=== PATIENT | male | born 1965 | race Caucasian/White ===

== ENCOUNTER 2018-03-30 00:34 | Day surgery (SDC) | payer OTHER ==
[~2018-03-30 00:34] MED LIST: CEFU50SU; CRUTCH3 USE; DOXYCYCLINE HY100 MG PO; DULO60; Depo-Testos200 MG/ML IM; HYDACE5 PO; IBUP600 PO; IBUP800 PO; NAPR500 PO; NYST100000; Norco 10-325 T1 EACH PO; OXYACE5T PO; RXERYTOPTH OP; Tindamax500 MG
[2018-03-30] MEDS ORDERED: ATOVAQUONE750 MG/5 M PO (11:55)
[2018-03-30] MEDS ORDERED: Sulfamethoxazo1 EAC4 PO (11:56)
[2018-03-30] MEDS ORDERED: [UNRECOGNIZED DRUG - CODE] PO (11:56)
[2018-03-30] MEDS ORDERED: AZIT250 PO (11:56)
[2018-03-30] MEDS ORDERED: ATOVAQUONE-PRO1 EAC1 PO (11:56)
[2018-03-30] MEDS ORDERED: DULO60 PO (11:57)
[2018-03-30] MEDS ORDERED: MELO7.5 PO (11:57)
[2018-03-30] MEDS ORDERED: Hair, Skin & N1 EACH PO (11:58)
== END 2018-03-30 11:20 | disposition home or self-care (01) ==
LOC: ATC 00:34
DX: A69.20 Lyme disease, unspecified (principal); B60.0 Babesiosis; G62.9 Polyneuropathy, unspecified; R51 Headache; M25.50 Pain in unspecified joint
CPT/HCPCS: 36569; C1751

== ENCOUNTER 2018-04-07 01:00 | Day surgery (SDC) | payer OTHER ==
[~2018-04-07 01:00] MED LIST changes: +ATOVAQUONE-PRO1 EAC1 PO; +ATOVAQUONE750 MG/5 M PO; +AZIT250 PO; +DULO60 PO; +Hair, Skin & N1 EACH PO; +MELO7.5 PO; +Sulfamethoxazo1 EAC4 PO; +[UNRECOGNIZED DRUG - CODE] PO
== END 2018-04-07 10:12 | disposition home or self-care (01) ==
LOC: ATC 01:00
DX: A69.20 Lyme disease, unspecified (principal); B60.0 Babesiosis; G62.9 Polyneuropathy, unspecified; R51 Headache; M25.50 Pain in unspecified joint
CPT/HCPCS: 99211

== ENCOUNTER 2018-04-13 13:54 | Day surgery (SDC) | payer OTHER | END 2018-04-13 14:27 | disposition home or self-care (01) | LOC: ATC 13:54 | DX: A69.20 Lyme disease, unspecified (principal); B60.0 Babesiosis; G62.9 Polyneuropathy, unspecified; R51 Headache; M25.50 Pain in unspecified joint | CPT/HCPCS: 99211 ==

== ENCOUNTER 2018-04-20 00:55 | Day surgery (SDC) | payer OTHER | END 2018-04-20 10:25 | disposition home or self-care (01) | LOC: ATC 00:55 | DX: A69.20 Lyme disease, unspecified (principal); B60.0 Babesiosis; G62.9 Polyneuropathy, unspecified; R51 Headache; M25.50 Pain in unspecified joint | CPT/HCPCS: 99211 ==

== ENCOUNTER 2018-05-04 00:22 | Day surgery (SDC) | payer OTHER | END 2018-05-04 11:15 | disposition home or self-care (01) | LOC: ATC 00:22 | DX: A69.20 Lyme disease, unspecified (principal); B60.0 Babesiosis; G62.9 Polyneuropathy, unspecified; R51 Headache; M25.50 Pain in unspecified joint | CPT/HCPCS: 99211 ==

== ENCOUNTER 2018-05-10 00:22 | Day surgery (SDC) | payer OTHER | END 2018-05-10 10:30 | disposition home or self-care (01) | LOC: ATC 00:22 | DX: A69.20 Lyme disease, unspecified (principal); B60.0 Babesiosis; G62.9 Polyneuropathy, unspecified; R51 Headache; M25.50 Pain in unspecified joint ==

== ENCOUNTER 2018-05-13 09:12 | Day surgery (SDC) | payer OTHER | END 2018-05-13 11:24 | disposition home or self-care (01) | LOC: ATC 09:12 | DX: A69.20 Lyme disease, unspecified (principal); B60.0 Babesiosis; R51 Headache; M25.50 Pain in unspecified joint; G62.9 Polyneuropathy, unspecified; Z79.899 Other long term (current) drug therapy; F33.1 Major depressive disorder, recurrent, moderate | CPT/HCPCS: 99211 ==

== ENCOUNTER 2018-05-18 00:45 | Day surgery (SDC) | payer OTHER | END 2018-05-18 10:10 | disposition home or self-care (01) | LOC: ATC 00:45 | DX: A69.20 Lyme disease, unspecified (principal); B60.0 Babesiosis; G62.9 Polyneuropathy, unspecified; R51 Headache; M25.50 Pain in unspecified joint | CPT/HCPCS: 99211 ==

== ENCOUNTER 2018-05-23 00:33 | Day surgery (SDC) | payer OTHER | END 2018-05-23 09:26 | disposition home or self-care (01) | LOC: ATC 00:33 | DX: Z45.2 Encounter for adjustment and management of vascular access device (principal); A69.20 Lyme disease, unspecified; B60.0 Babesiosis; R51 Headache; M25.50 Pain in unspecified joint; G62.9 Polyneuropathy, unspecified | CPT/HCPCS: 99211 ==

== ENCOUNTER 2018-06-20 00:29 | Day surgery (SDC) | payer OTHER | END 2018-06-20 09:10 | disposition home or self-care (01) | LOC: ATC 00:29 | DX: A69.20 Lyme disease, unspecified (principal); B60.0 Babesiosis; G62.9 Polyneuropathy, unspecified; R51 Headache; M25.50 Pain in unspecified joint | CPT/HCPCS: 99211 ==

== ENCOUNTER 2018-06-27 00:27 | Day surgery (SDC) | payer OTHER | END 2018-06-27 09:13 | disposition home or self-care (01) | LOC: ATC 00:27 | DX: A69.20 Lyme disease, unspecified (principal); B60.0 Babesiosis; G62.9 Polyneuropathy, unspecified; R51 Headache; M25.50 Pain in unspecified joint | CPT/HCPCS: 99211 ==

== ENCOUNTER 2018-07-01 14:12 | Day surgery (SDC) | payer OTHER | END 2018-07-01 14:39 | disposition home or self-care (01) | LOC: ATC 14:12 | DX: Z45.2 Encounter for adjustment and management of vascular access device (principal); A69.20 Lyme disease, unspecified; B60.0 Babesiosis; G62.9 Polyneuropathy, unspecified | CPT/HCPCS: 99211 ==

== ENCOUNTER 2018-07-04 01:35 | Day surgery (SDC) | payer OTHER | END 2018-07-04 09:23 | disposition home or self-care (01) | LOC: ATC 01:35 | DX: Z45.2 Encounter for adjustment and management of vascular access device (principal); A69.20 Lyme disease, unspecified; B60.0 Babesiosis; G62.9 Polyneuropathy, unspecified | CPT/HCPCS: 99211 ==

== ENCOUNTER 2018-07-18 09:55 | Day surgery (SDC) | payer OTHER | END 2018-07-18 10:20 | disposition home or self-care (01) | LOC: ATC 09:55 | DX: A69.20 Lyme disease, unspecified (principal); B60.0 Babesiosis; R51 Headache; G62.9 Polyneuropathy, unspecified; M25.50 Pain in unspecified joint | CPT/HCPCS: 99211 ==

== ENCOUNTER 2018-07-25 00:13 | Day surgery (SDC) | payer OTHER | END 2018-07-25 09:08 | disposition home or self-care (01) | LOC: ATC 00:13 | DX: A69.20 Lyme disease, unspecified (principal); B60.0 Babesiosis; G62.9 Polyneuropathy, unspecified; M25.50 Pain in unspecified joint | CPT/HCPCS: 99211 ==

== ENCOUNTER 2018-08-01 00:45 | Day surgery (SDC) | payer OTHER | END 2018-08-01 09:38 | disposition home or self-care (01) | LOC: ATC 00:45 | DX: A69.20 Lyme disease, unspecified (principal); B60.0 Babesiosis; G62.9 Polyneuropathy, unspecified; R51 Headache; M25.50 Pain in unspecified joint | CPT/HCPCS: 99211 ==

== ENCOUNTER 2018-08-08 00:34 | Day surgery (SDC) | payer OTHER | END 2018-08-08 09:25 | disposition home or self-care (01) | LOC: ATC 00:34 | DX: Z45.2 Encounter for adjustment and management of vascular access device (principal); A69.20 Lyme disease, unspecified; B60.0 Babesiosis; G62.9 Polyneuropathy, unspecified; R51 Headache; M25.50 Pain in unspecified joint | CPT/HCPCS: 99212 ==

== ENCOUNTER 2018-10-31 14:42 | Observation (INO) | payer OTHER ==
[~2018-10-31] VITALS: Ht 195.6 cm; Wt 109.5 kg
[2018-10-31 15:32] LABS: BASOPHILS ABSOLUTE AUTO 0.02 K/mm3 (0.00-0.23); BASOPHILS PERCENT AUTO 0 % (0-2); EOSINOPHILS PERCENT AUTO 4 % (0-6); Hemoglobin 14.6 g/dL (13.5-17.5); IMMATURE GRAN ABSOLUTE AUTO 0.01 K/mm3 (0.00-0.10); IMMATURE GRAN PERCENT AUTO 0 % (0-1); LYMPHOCYTES ABSOLUTE AUTO 1.78 K/mm3 (0.84-5.20); LYMPHOCYTES PERCENT AUTO 32 % (21-46); MONOCYTES PERCENT AUTO 5 % (4-13); Mean Corpuscular HGB 30.1 pg (26.0-34.0); Mean Corpuscular Volume 89 fL (80-100); Mean Platelet Volume 10.1 fL (9.1-12.4); NEUTROPHILS PERCENT AUTO 59 % (41-73); Platelet Count 179 K/mm3 (150-400); RDW Standard Deviation 44.9 fL (35.1-46.3); Red Blood Cell Count 4.85 M/mm3 (4.30-5.90); White Blood Cell Count 5.61 K/mm3 (4.00-11.30)
[2018-10-31 15:47] LABS: Troponin I <0.015 ng/mL (0.000-0.040)
[2018-10-31 15:56] LABS: Alanine Aminotransfer (ALT/SGP 34 U/L (12-78); Albumin, Blood 3.9 g/dL (3.4-5.0); Albumin/Globulin Ratio 1.1 (0.8-1.8); Alk Phos 73 U/L (50-136); Anion Gap 7 mmol/L (6-16); Aspartate Aminotrans (AST/SGOT 37 U/L (12-37); Bilirubin, Total 0.3 mg/dL (0.1-1.0); Blood Urea Nitrogen 10 mg/dL (8-24); Bun/Creatinine Ratio 13.1 (12.0-20.0); CO2, Blood 28 mmol/L (21-32); Chloride, Blood 106 mmol/L (98-108); Creatinine, Blood 0.76 mg/dL (0.60-1.20); Globulin, Blood 3.6 g/dL (2.2-4.0); Glomerular Filtration Rate >60 (60-); Glucose, Blood 106 mg/dL (70-99); Potassium, Blood 4.2 mmol/L (3.5-5.5); Sodium, Blood 141 mmol/L (136-145); Total Protein, Blood 7.5 g/dL (6.4-8.2)
[2018-10-31 17:54] LABS: CHOL/HDL RATIO 4.6; Cholesterol 203 mg/dL (50-200); HDL Cholesterol 44 mg/dL (>39); LDL/HDL RATIO 1.9; Low Density Lipoprotein Chol 85 mg/dL (0-110); Triglycerides 371 mg/dL (30-160); Very Low Density Lipoprot Chol 74 mg/dL (6-32)
[2018-10-31 18:25] LABS: International Normalized Ratio 0.94; Prothrombin Time Results 9.7 Sec (9.7-11.5)
[2018-11-01 02:20] LABS: Hematocrit 41.7 % (37.0-53.0); Hemoglobin 14.2 g/dL (13.5-17.5); Mean Corpuscular HGB 29.6 pg (26.0-34.0); Mean Corpuscular HGB Conc 34.1 g/dL (31.5-36.5); Mean Corpuscular Volume 87 fL (80-100); Mean Platelet Volume 9.5 fL (9.1-12.4); Platelet Count 147 K/mm3 (150-400); RDW Coefficient Variation 13.9 % (11.7-14.2); RDW Standard Deviation 43.8 fL (35.1-46.3); White Blood Cell Count 6.14 K/mm3 (4.00-11.30)
[2018-11-01 02:25] LABS: Anion Gap 8 mmol/L (6-16); Blood Urea Nitrogen 11 mg/dL (8-24); Bun/Creatinine Ratio 13.9 (12.0-20.0); CO2, Blood 27 mmol/L (21-32); Calcium, Blood 8.8 mg/dL (8.5-10.1); Chloride, Blood 107 mmol/L (98-108); Creatinine, Blood 0.79 mg/dL (0.60-1.20); Glomerular Filtration Rate >60 (60-); Glucose, Blood 93 mg/dL (70-99); Sodium, Blood 142 mmol/L (136-145)
[2018-11-01] MEDS ORDERED: OMEPRAZOLE MAGN20 MG PO (12:46)
== END 2018-11-01 13:21 | disposition home or self-care (01) ==
LOC: ER 14:42 → MEDS 14:43 → PCU 19:49 → MEDS 20:00 → PCU 11-01 08:53
PROVIDERS: Nurse Practitioner Acute Care; Physician Assistant
DX: R07.89 Other chest pain (principal); F32.9 Major depressive disorder, single episode, unspecified; Z79.899 Other long term (current) drug therapy; Z79.01 Long term (current) use of anticoagulants
CPT/HCPCS: 36415; 71046; 80048; 80053; 80061; 83880; 84484; 85025; 85027; 85610; 85730; 93005; 93010; 93458; 99152; 99285-25; C1769; C1894; G0378; J1644; J2250; J3010; J7030; Q9967